=== PATIENT | female | born 1965 ===

== ENCOUNTER → 2021-07-26 | Outpatient (CLI) | payer OTHER ==
[~2021-07-26] VITALS: Ht 64 cm; Wt 67.0 kg
[~2021-07-26] MED LIST: LIDOCAINE 1% INJ 20 ML VIAL ONE
[2021-07-26 15:03] VITALS: BP 126/80
--- NOTE | 2021-07-26 18:03 | Diagnostic Imaging Report ---
INDICATION: Left breast density. EXAMINATION: Patient presents for ultrasound-guided core biopsy. PROCEDURE: Patient brought to the sonographic suite and placed on table in the supine position. Ultrasound imaging of the left breast was performed to evaluate an appropriate entry site. The left breast was then prepped and draped in the usual sterile fashion. Small amount of 1% lidocaine was utilized for local anesthesia. Multiple core biopsies were obtained of the small hypoechoic echogenicity at the 3:00 location of the left breast, 5-6 cm from the nipple utilizing the 13-gauge hand-held vacuum-assisted mammotome device. A marker clip was then deployed. Hemostasis was obtained using manual compression. Patient tolerated the procedure well and was sent for a post procedure mammogram in satisfactory condition. IMPRESSION: Successful ultrasound-guided core biopsy of a small hypoechoic nodule at the 3 o'clock location in left breast 5-6 cm from the nipple utilizing the hand-held vacuum-assisted mammotome device. Pathology results are currently pending. Dictated by: Dictated on workstation # [id number]
--- NOTE | 2021-07-27 13:22 | Diagnostic Imaging Report ---
INDICATION: Left breast nodule. Patient status post ultrasound-guided biopsy. Unilateral left 2-D CC and ML mammography was performed after patient underwent ultrasound-guided biopsy. Images demonstrate a marker clip in the outer central left breast. There is some increased density, likely representing a hematoma. IMPRESSION: Marker clip placement, status post ultrasound-guided core biopsy. Dictated by: Dictated on workstation # [id number]
== END ==
LOC: RAD 14:00
PROVIDERS: ATTEND Family Medicine
DX: N63.25 Unspecified lump in the left breast, overlapping quadrants (principal)
CPT/HCPCS: 19083; 77065; A4648; G0279